=== PATIENT | male | born 1970 | race Caucasian/White ===

== ENCOUNTER 2020-04-28 21:49 | Emergency (ER) | payer OTHER ==
[2020-04-28] MEDS ORDERED: SULFAMETHOX-TMP DS 800/160 TAB ONE (22:01)
[2020-04-28] MEDS ORDERED: CLINDAMYCIN HCL 150 MG CAP ONE (22:01)
[2020-04-28] MEDS ORDERED: KETOROLAC TROMETHAMINE 60 MG/2 ML VIAL ONE (22:02)
[2020-04-28] MEDS ORDERED: PREDNISONE 20 MG TABLET ONE (22:02)
== END 2020-04-28 23:11 | disposition home or self-care (01) ==
LOC: EDH 21:49
DX: Z48.01 Encounter for change or removal of surgical wound dressing (principal)
CPT/HCPCS: 99284; J1885